=== PATIENT | female | born 1990 | race Caucasian/White ===

== ENCOUNTER 2020-03-16 15:48 | Day surgery (SDC) | payer BC ==
[~2020-03-16] VITALS: Ht 162.6 cm; Wt 81.8 kg
[2020-03-16] MEDS ORDERED: PRENATABS RX T1 EACH PO (16:02)
--- NOTE | 2020-03-16 16:19 | NUR ---
COVID SAMPLE OBTAINED AND SENT TO [facility], NO COMPLICATIONS
--- NOTE | 2020-03-16 17:38 | NUR ---
03/16/20 1738 Miladis Chaparro 1734 PATIENT ARRIVES TO PACU AWAKE BUT VERY DROWSY. RESP EVEN AND UNLABORED, MASK AT 6 LITERS. DENIES PAIN OR NAUSEA.
--- NOTE | 2020-03-16 18:17 | NUR ---
PATIENT ARRIVED TO [facility] AT 1810, IMMEDIATELY AMBULATED TO BATHROOM TO VOID, INDICATES THAT SHE HAS HAD CRACKERS IN PACU AND DOES NOT WANT FOOD AT THIS TIME. PAIN IS MINIMAL AT 2/10 AND PATIENT DENIES NEED FOR MEDICATIONS AT THIS TIME. SPOUSE HAS PRESCRIPTIONS AND IS AT PHARMACY. VSS 100% ON ROOM AIR, BP IS 125/77 (89), P=78, PATIENT IS AFEBRILE.
[2020-03-16] MEDS ORDERED: HYDROCODON-ACE1 EA10 PO (18:47)
[2020-03-16] MEDS ORDERED: PROMETHAZINE12.5 M1 PO (18:49)
--- NOTE | 2020-03-16 19:00 | NUR ---
RECEIVED REPORT FROM MANJU APODACA. pt RESTING IN BED. DENIES PAIN "JUST DISCOMFORT" NO REQUESTS AT THIS TIME. WAITING FOR TO ARRIVE FOR DISCHARGE INSTRUCTIONS. CALL LIGHT WITHIN REACH.
--- NOTE | 2020-03-16 19:33 | NUR ---
IN TO ASSESS pt. NO NEW SHADOWING ON DRESSINGS. VITALS WNL. DISCHARGE INSTRUCTIONS DISCUSSED, pt AND VERBALIZE UNDERSTANDING. ALL QUESTIONS ANSWERED. pt UP TO GET DRESSED. REFUSED WHEELCHAIR. IN ROOM WITH pt.
--- NOTE | 2020-03-17 11:50 | OR ---
[facility] [address] [place] [address] Signed DATE OF OPERATION: 03/16/2020 SURGEON: Altaf Monsalve MD The patient of Dr. Monsalve PREOPERATIVE DIAGNOSIS: Six week intrauterine with probable additional left tubal (heterotopic ). POSTOPERATIVE DIAGNOSIS: Six week intrauterine with extensive left paratubal varicosities. PROCEDURE PERFORMED: Diagnostic laparoscopy. PLASTIC OUTFITTER: Gillian Mojica DO ANESTHESIA: General. ESTIMATED BLOOD LOSS: 10 mL. SPECIMEN: None. FINDINGS: Six week size uterus. Anterior and posterior cul-de-sac was free of any blood or adhesions. The left tube was normal in length and normal-appearing fimbriated end. No adhesions. No abnormal dilation of the tube and no evidence of rupture or tubal . Just lateral and anterior to the tube in the retroperitoneal space of the mesosalpinx, there was dense group of varicosities running from the uterus all the way up to the pelvic brim. This was approximately 2 to 3 cm in diameter, very tortuous appearing and stretching the peritoneum just lateral to the tube and adjacent to the tube, coming up right up against the tube. The left ovary was normal in size and shape. No adhesions. The right tube was normal in length and normal-appearing fimbriated end and no adhesions. No evidence of tubal . There were slight Electronically Signed By: ALTAF MONSALVE MD 03/17/20 1150 PATIENT NAME: STERLING SHAFFER OPERATIVE REPORT DATE OF : [birth year] REPORT #: [id number] PHYSICIAN: ALTAF MONSALVE MD PCP: NO PRIMARY CARE PHYSICIAN REPORT IS CONFIDENTIAL AND NOT TO BE RELEASED WITHOUT AUTHORIZATION [facility] [address] [place], [place] [address] Signed varicosities on this side, but nothing close to the left side. Right ovary is normal size and shape with some filmy adhesions. No other masses. The appendix appeared normal. DESCRIPTION OF PROCEDURE: The patient was brought to the operating room, placed in supine position. After adequate general anesthesia was obtained, was placed in dorsal lithotomy position, prepped and draped in usual sterile fashion. Sales catheter was placed in the bladder. Attention was then drawn to the abdomen. A small infraumbilical skin incision was made with a scalpel after injecting the area with 0.25% Marcaine with epinephrine. Subcutaneous tissue was dissected with Metzenbaum scissors and the fascia grasped with hemostats, elevated, nicked with Metzenbaum scissors and extended in transverse fashion. The peritoneum was bluntly opened with finger and an S retractor was inserted into the incision. A Ludin cannula and sleeve then entered the abdomen under direct visualization. The S retractor removed and the balloon filled with air and then the trocar removed. Retention stitches of 0 Vicryl suture had already been placed in the fascia above and below the incision. These were tied to the sleeve. Carbon dioxide was used as distending medium. The laparoscope placed through the sleeve and the above findings noted. A small skin incision was made on the right side just below the level of the umbilicus approximately 10 cm lateral to midline. This area was transilluminated to avoid any vessels. Injected with 0.25% Marcaine with epinephrine and then after making a small skin incision, a 5 mm bladed trocar and sleeve entered the abdomen under direct visualization. Trocar was removed and the blunt grasper inserted. The above findings were noted and confirmed. The left tube was carefully inspected. No evidence of tubal was noted and care was taken to avoid damaging the extreme varicosities and the varicosities did explain the ultrasound appearance, so it was decided to not continue with the salpingectomy. All instruments were removed. The gas allowed to escape and the final sleeve removed. The infraumbilical incision was closed using running stitch of 0 Vicryl suture. The two retention stitches tied together for further support. The two skin incisions were closed using subcuticular stitch of 4-0 Vicryl suture. Sales catheter was removed. The patient tolerated the procedure well, went to recovery room in good condition. The sponge, needle, and instrument count were correct at the end of the procedure. Altaf Monsalve MD MJB/MODL /[id number] Electronically Signed By: ALTAF MONSALVE MD 03/17/20 1150 PATIENT NAME: STERLING SHAFFER OPERATIVE REPORT DATE OF : [birth year] REPORT #: [id number] PHYSICIAN: ALTAF MONSALVE MD PCP: NO PRIMARY CARE PHYSICIAN REPORT IS CONFIDENTIAL AND NOT TO BE RELEASED WITHOUT AUTHORIZATION [facility] [address] [place] [address] Signed Copies: ~ Electronically Signed By: ALTAF MONSALVE MD 03/17/20 1150 PATIENT NAME: STERLING SHAFFER OPERATIVE REPORT DATE OF : [birth year] REPORT #: [id number] PHYSICIAN: ALTAF MONSALVE MD PCP: NO PRIMARY CARE PHYSICIAN REPORT IS CONFIDENTIAL AND NOT TO BE RELEASED WITHOUT AUTHORIZATION
== END 2020-03-16 19:28 | disposition home or self-care (01) ==
LOC: DS 15:48 → MS 18:10 → DS 19:28
PROVIDERS: ATTEND General Practice
PROC: 0UJ84ZZ Inspection of Fallopian Tube, Percutaneous Endoscopic Approach (ICD-10-PCS; principal; 2020-03-16 15:15)
DX: O22.01 Varicose veins of lower extremity in pregnancy, first trimester (principal); O99.351 Diseases of the nervous system complicating pregnancy, first trimester; G43.909 Migraine, unspecified, not intractable, without status migrainosus; O09.01 Supervision of pregnancy with history of infertility, first trimester; Z3A.01 Less than 8 weeks gestation of pregnancy; Z20.822 Contact with and (suspected) exposure to COVID-19
CPT/HCPCS: 00840; 85025; C9803; J0330; J1100; J1885; J2250; J2405; J2704; J3475; J7121; U0003

== ENCOUNTER 2020-11-01 08:40 | Inpatient (IN) | payer BC ==
[~2020-11-01] VITALS: Ht 162.6 cm; Wt 82.0 kg
[~2020-11-01 08:40] MED LIST: HYDROCODON-ACE1 EA10 PO; PRENATABS RX T1 EACH PO; PROMETHAZINE12.5 M1 PO
--- NOTE | 2020-11-01 10:13 | PR ---
[facility] [address] [facility] [place], [place] [address] Signed Progress Notes IP Datetime Report Generated by CPN: 11/01/2020 10:13 PROGRESS NOTES: [id number] Impression: Normal Progression of Labor VITAL SIGNS: [id number] Vital Signs: Reviewed; Within Normal Limits EXAM: [id number] Dilatation: 4.0 Effacement: 90 Station: -3 Contractions: every 5-7 minutes MEMBRANES: [id number] Membranes Status: Ruptured Comments: Will continue monitoring, patient planning on UTB for now. FETUS A: [id number] FHR Baseline: 135 Variability: Moderate 6-25bpm Accelerations: 15X15 Presentation: Vertex FETUS B: [id number] Signing Physician: Ema Padilla MD Copies: ~ *Electronically Signed* 11/01/20 1013 EMA PADILLA MD PATIENT NAME: STERLING SHAFFER PROGRESS NOTE DATE OF : [birth year] PHYSICIAN: EMA PADILLA MD RPT #: [id number] REPORT IS CONFIDENTIAL AND NOT TO BE RELEASED WITHOUT AUTHORIZATION
--- NOTE | 2020-11-01 16:15 | PR ---
[facility] [address] [facility] [place] [place] [address] Signed Progress Notes IP Datetime Report Generated by CPN: 11/01/2020 16:15 PROGRESS NOTES: [id number] Impression: Normal Progression of Labor Plan: Continue Present Management; Anticipate Vaginal Delivery VITAL SIGNS: [id number] Vital Signs: Reviewed; Within Normal Limits EXAM: [id number] Dilatation: 9.0 Effacement: 95 Station: -1 Contractions: every 5-7 minutes MEMBRANES: [id number] Membranes Status: Ruptured Comments: Patient started on Pitocin augmentation earlier for slow progress. Bradycardia for about 5 minutes, during episode of tachysystole, down to 80's, so Pitocin turned off, patient moved to left dise, right side, back to left side, with recovery of FHR. Will watch closely. Patient comfmortable with Epidural. FETUS A: [id number] FHR Baseline: 135 Variability: Moderate 6-25bpm Accelerations: 15X15 Presentation: Vertex FETUS B: [id number] Signing Physician: Ema Padilla MD Copies: ~ *Electronically Signed* 11/01/20 3026 EMA PADILLA MD PATIENT NAME: STERLING SHAFFER PROGRESS NOTE DATE OF : [birth year] PHYSICIAN: EMA PADILLA MD RPT #: [id number] REPORT IS CONFIDENTIAL AND NOT TO BE RELEASED WITHOUT AUTHORIZATION
--- NOTE | 2020-11-01 16:46 | PR ---
[facility] [address] [facility] [place], [place] [address] Signed Progress Notes IP Datetime Report Generated by CPN: 11/01/2020 16:46 PROGRESS NOTES: [id number] Impression: Normal Progression of Labor Plan: Continue Present Management; Anticipate Vaginal Delivery VITAL SIGNS: [id number] Vital Signs: Reviewed; Within Normal Limits EXAM: [id number] Dilatation: 10.0 Effacement: 100 Station: 1 Contractions: every 5-7 minutes MEMBRANES: [id number] Membranes Status: Ruptured Comments: Comfortable with Epidural. FHR seems to have recovered. Will start pushing. FETUS A: [id number] FHR Baseline: 135 Variability: Moderate 6-25bpm Accelerations: 15X15 Presentation: Vertex FETUS B: [id number] Signing Physician: Ema Padilla MD Copies: ~ *Electronically Signed* 11/01/20 1646 EMA PADILLA MD PATIENT NAME: STERLING SHAFFER PROGRESS NOTE DATE OF : [birth year] PHYSICIAN: EMA PADILLA MD RPT #: [id number] REPORT IS CONFIDENTIAL AND NOT TO BE RELEASED WITHOUT AUTHORIZATION
--- NOTE | 2020-11-02 11:58 | PR ---
[facility] [address] [facility] [place], [place] [address] Signed PP Progress Notes Datetime Report Generated by CPN: 11/02/2020 11:57 SUBJECTIVE: [id number] Pain: Within Normal Limits Nausea/Vomiting: Denies Vital Signs: [id number] Vital Signs: Reviewed; Within Normal Limits Abdomen/Uterus: Normal Lochia: Normal Extremities: Normal IMPRESSION/PLAN/PROCEDURES: [id number] Impression: Normal Progression Plan: Discharge Procedures: None Progress Notes: Doing well, without complaint, ready to go home. Signing Physician: Ema Padilla MD Copies: ~ *Electronically Signed* 11/02/20 1157 EMA PADILLA MD PATIENT NAME: STERLING SHAFFER PROGRESS NOTE DATE OF : [birth year] PHYSICIAN: EMA PADILLA MD RPT #: [id number] REPORT IS CONFIDENTIAL AND NOT TO BE RELEASED WITHOUT AUTHORIZATION
== END 2020-11-02 18:40 | disposition home or self-care (01) | DRG 807 ==
LOC: FBCO → FBC 09:10 → FBCO 11-06 12:52
PROVIDERS: ADMIT General Practice; ATTEND General Practice
PROC: 10E0XZZ Delivery of Products of Conception, External Approach (ICD-10-PCS; principal; 2020-11-01)
PROC: 0W8NXZZ Division of Female Perineum, External Approach (ICD-10-PCS; 2020-11-01)
PROC: 3E0R3BZ Introduction of Anesthetic Agent into Spinal Canal, Percutaneous Approach (ICD-10-PCS; 2020-11-01)
PROC: 00HU33Z Insertion of Infusion Device into Spinal Canal, Percutaneous Approach (ICD-10-PCS; 2020-11-01)
PROC: 10907ZC Drainage of Amniotic Fluid, Therapeutic from Products of Conception, Via Natural or Artificial Opening (ICD-10-PCS; 2020-11-01)
DX: O76 Abnormality in fetal heart rate and rhythm complicating labor and delivery (principal); Z37.0 Single live birth; Z20.822 Contact with and (suspected) exposure to COVID-19; Z3A.39 39 weeks gestation of pregnancy
CPT/HCPCS: 01960; 85027; A9270; C9803; J2590; J2795; J3010; J7121; U0003

== ENCOUNTER 2022-01-31 05:49 | Day surgery (SDC) | payer BC ==
[~2022-01-31] VITALS: Ht 162.6 cm; Wt 79.1 kg
[~2022-01-31 05:49] MED LIST changes: +OMEPRAZOLE20 M1 PO
[2022-01-31] MEDS ORDERED: EFFEXOR XR37.5 MG PO (06:46)
--- NOTE | 2022-01-31 09:06 | NUR ---
01/31/22 0906 Chelsea Alvarado 0901- PT ARRIVES TO PACU NONAROUSABLE TO STIMULI. RESP EVEN AND UNLABORED. OXYGEN SAT HIGH 90'S ON 6L VIA MASK.
[2022-01-31] MEDS ORDERED: ACETAMINOPHEN500 MG PO (09:18)
[2022-01-31] MEDS ORDERED: PERCOCET 7.5-31 EACH PO (09:18)
[2022-01-31] MEDS ORDERED: MOTRIN IB200 MG PO (09:19)
--- NOTE | 2022-01-31 09:41 | NUR ---
PT TRANSPORTED BACK TO DAY SURGERY VIA STRETCHER. REPORTS 2/10 PAIN AT SURGICAL SITES AND NO NAUSEA. PT DRINKING ICE WATER. PT'S AT BEDSIDE. CALL LIGHT WITHIN REACH.
--- NOTE | 2022-01-31 09:49 | NUR ---
PT RESTING UP IN BED EATING CRACKERS AND PUDDING. CALL LIGHT WITHIN REACH.
--- NOTE | 2022-01-31 10:10 | NUR ---
PT REQUESTING MEDICATION FOR 4/10 PAIN.
--- NOTE | 2022-01-31 10:48 | NUR ---
1040-PATIENT UP TO SIDE OF BED. DENIES DIZZINESS. PATIENT AMBULATES TO RESTROOM WITH 1 RN ASSIST. GAIT STEADY AND TOLERATED WELL. PATIENT ABLE TO VOID 100ML OF YELLOW URINE. 1045-PATIENT BACK TO ROOM AND LAYING IN BED. RATES PAIN 3/10. REINFORCED UMBILICAL INCISION WITH BAND-AID.
--- NOTE | 2022-01-31 10:53 | NUR ---
PT RESTING IN BED WITH AT BEDSIDE. PT REPORTS 2/10 PAIN AND NO NAUSEA. PT STATES THEY ARE READY TO DISCHARGE. CALL LIGHT WITHIN REACH.
--- NOTE | 2022-01-31 11:13 | NUR ---
PT DISCHARGED FROM DAY SURGERY VIA WHEELCHAIR TO PERSONAL AUTOMOBILE. AT AUTOMOBILE.
--- NOTE | 2022-01-31 14:14 | NUR ---
CONNECTD WITH PT BEFORE SURGERY. SHE IS ALERT, ORIENTED AND SUPPORTED BY HER KRISSY. PT IS INFORMED, SEEMS RELAXED. GAVE ENCOURAGEMENT, KRISSY WILL REMAIN FOR DC. PT REQUESTED PRAYER, WILL FOLLOW
--- NOTE | 2022-02-03 13:32 | OR ---
[facility] [address] [place], [place] [address] Signed DATE OF OPERATION: 01/31/2022 SURGEON: Von Donaldson MD PREOPERATIVE DIAGNOSES: Symptomatic gallstones. POSTOPERATIVE DIAGNOSIS: Symptomatic gallstones. PROCEDURES: 1. Laparoscopic cholecystectomy with intraoperative cholangiogram. 2. Surgeon-directed fluoroscopy. ANESTHESIA: General endotracheal, Chris Shy, COMMISSARY SUPERINTENDENT and local 20 mL of 0.25% Marcaine with epinephrine. 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 She is a patient of DIAMOND Cardozo. She is found to have typical bouts of epigastric and right subcostal pain radiating to the back. Her 1st episode was in [place] where she was traveling; she had elevated liver enzymes. She deferred any further evaluation until she returned to [place]. She underwent gallbladder ultrasound on December 20 at [facility] showing multiple gallstones, gallbladder wall thickness was upper limits of normal. She has rather typical symptoms of right upper abdominal and right subscapular pain following meals. She did have hysteroscopy and abdominal laparoscopy in 2015 and subsequent exploratory laparotomy in 2021 which was thought to be heterotopic , but instead was found to be varicose veins of the tubo-ovarian ligament. She is otherwise in good health. She is admitted at this time to undergo cholecystectomy preferred by laparoscopic approach. Understand well the risks of bleeding, infection, bile duct injury, need for open procedure and of course failure to cure her symptoms. Most likely, she will have much improvement with cholecystectomy. She understands the risk of operation and wished to proceed. FINDINGS: The gallbladder was chronically inflamed. It was not tense and distended. The liver was perfectly normal. There were some adhesions in the region of the umbilicus related to prior laparoscopy. The gallbladder once excised showed multiple yellow mulberry type gallstones. Intraoperative cholangiogram was normal. Electronically Signed By: VON DONALDSON MD 02/03/22 1332 PATIENT NAME: STERLING SHAFFER OPERATIVE REPORT DATE OF : [birth year] REPORT #: [id number] PHYSICIAN: VON DONALDSON MD PCP: SHANI HUBBARD NP REPORT IS CONFIDENTIAL AND NOT TO BE RELEASED WITHOUT AUTHORIZATION [facility] [address] [place], [place] [address] Signed DESCRIPTION OF PROCEDURE: The patient was brought to the operating room, given a general endotracheal anesthetic. Preoperative antibiotic Ancef was given. Sequential compression device stockings used and heparin subcutaneously administered. The abdomen was prepared with a chlorhexidine solution and draped sterilely. An infraumbilical incision was made and using an open Ludin cannula technique pneumoperitoneum was achieved to a level of 14 mmHg of carbon dioxide gas. Intra-abdominal inspection showed no sign of ascites or carcinomatosis. The gallbladder was obscured from view largely. The liver was perfectly normal. Three additional trocars were placed in usual configuration in the subxiphoid, right midclavicular, and right anterior axillary line. The gallbladder was elevated cephalad and was noted to have omental adhesions to its undersurface. These were taken down with blunt electrocautery dissection. The gallbladder was more fully elevated. The infundibulum grasped and retracted laterally. Using blunt and electrocautery dissection, the triangle of Calot was dissected free identifying well the cystic duct and cystic artery. Cystic artery was doubly clipped and divided. A clip was applied across the gallbladder cystic duct junction and a transverse choledochotomy made in the cystic duct. Egress of clear bile was noted. Using the Vericept type cholangiocatheter system, intraoperative cholangiography was undertaken showing free flow of contrast in the biliary tree with prompt emptying into the duodenum. There was no sign of abnormality. There was no filling defect. The catheter was removed the cystic duct was triply clipped and divided the gallbladder dissected free in a retrograde fashion using electrocautery. Gallbladder was extracted through the infraumbilical port site without problem, opened on the back table by the circulating nurse and found to have multiple yellow mulberry type gallstones. There was no sign of neoplasm. Irrigation was undertaken in subhepatic space. There was no sign of bile leak, bleeding or other problems. The trocars were removed under direct visualization showing no sign of bleeding. The infraumbilical fascial incision was reapproximated with interrupted 0 Vicryl suture. 20 mL of 0.25% Marcaine with epinephrine was injected locally in the trocar sites. The skin was closed with interrupted 3-0 Vicryl and Steri-Strips were applied. The patient was ultimately extubated, transferred to recovery room in good condition having suffered no complications. Sponge, needle, and instrument counts were reported as correct x3. Electronically Signed By: VON DONALDSON MD 02/03/22 1332 PATIENT NAME: STERLING SHAFFER OPERATIVE REPORT DATE OF : [birth year] REPORT #: [id number] PHYSICIAN: VON DONALDSON MD PCP: SHANI HUBBARD NP REPORT IS CONFIDENTIAL AND NOT TO BE RELEASED WITHOUT AUTHORIZATION [facility] [address] [place], [place] [address] Signed MD DOMENICO Tamez/VENANCIOL /[id number] cc: DIAMOND Cardozo Copies: ~ Electronically Signed By: VON DONALDSON MD 02/03/22 1332 PATIENT NAME: STERLING SHAFFER OPERATIVE REPORT DATE OF : [birth year] REPORT #: [id number] PHYSICIAN: VON DONALDSON MD PCP: SHANI HUBBARD NP REPORT IS CONFIDENTIAL AND NOT TO BE RELEASED WITHOUT AUTHORIZATION
--- NOTE | 2022-02-06 12:01 | PATH ---
[facility] [address] [facility] [place], [place] [address] Signed SPECIMEN(S): A GALLBLADDER SPECIMEN SOURCE: A. GALLBLADDER CLINICAL HISTORY: Gallbladder with stones. Cholecystitis. FINAL PATHOLOGIC DIAGNOSIS: Gallbladder, cholecystectomy: - Chronic cholecystitis with cholelithiasis and cholesterolosis. AMB:caw:C2NR MICROSCOPIC EXAMINATION: Histologic sections of all submitted blocks are examined by light microscopy. These findings, together with the gross examination, support the pathologic diagnosis. GROSS DESCRIPTION: The specimen, labeled and designated "Crocker, M, " and designated on the requisition "gallbladder with stones," is received in formalin and consists of Specimen: Previously opened gallbladder. Dimensions: 7.6 x 2.5 x 1.3 cm. Serosa: Yellow-green and smooth. Cystic Duct: Inked, unobstructed. Calculi: Multiple yellow-green multilobulated stones, aggregate measurement 4.5 x 4.0 x 1.6 cm. Mucosa: Green and velvety with yellow flecking. Wall thickness: 0.3 cm. Lymph node: No pericystic lymph nodes are grossly identified. Additional: None. Physical Therapy Coordinator sections are submitted in (A1). FB (under the direct supervision of a pathologist) The Gross Description was prepared using a voice recognition system. The report was reviewed for accuracy; however, sound-alike word errors, addition and/or deletions may occur. If there is any question about this report, please contact Client Services. PERFORMING LABORATORY: The technical component was performed by [facility], [address] [place] [id number] (CLIA# [id number]). Professional interpretation was PATIENT NAME: STERLING CROCKER PATHOLOGY DATE OF : [birth year] REPORT #: [id number] PHYSICIAN: [facility] PCP: SHANI HUBBARD NP REPORT IS CONFIDENTIAL AND NOT TO BE RELEASED WITHOUT AUTHORIZATION [facility] [address] [place] [address] Signed performed by [facility] [address] (CLIA#: [id number]). Diagnostician: Maggie Larios MD Pathologist Electronically Signed 02/06/2022 Copies: ~ PATIENT NAME: STERLING CROCKER PATHOLOGY DATE OF : [birth year] REPORT #: [id number] PHYSICIAN: MARLA PATHOLOGY PCP: SHANI HUBBARD NP REPORT IS CONFIDENTIAL AND NOT TO BE RELEASED WITHOUT AUTHORIZATION
== END 2022-01-31 11:05 | disposition home or self-care (01) ==
LOC: DS 05:49
PROVIDERS: ATTEND Surgery
PROC: 0FT44ZZ Resection of Gallbladder, Percutaneous Endoscopic Approach (ICD-10-PCS; principal; 2022-01-31 07:30)
DX: K80.10 Calculus of gallbladder with chronic cholecystitis without obstruction (principal)
CPT/HCPCS: 74300; 84703; J0690; J1100; J1644; J1885; J2001; J2370; J2405; J2704; J3475; J7121; Q9967